=== PATIENT | male | born 1955 | race Caucasian/White ===

== ENCOUNTER 2017-07-26 06:33 | Day surgery (SDC) | payer BC, SELFPAY ==
--- NOTE | 2017-07-26 | COLBX_PTH ---
PATIENT: DARIELA JUNG LOC: EN U#:[id number] AGE/SX: 62/M ROOM: RE07/26/[address]: Dr. Aaron Mckeon MD : 1955 BED: DIS: 07/26/2017 SPEC #: [id number] RECD: 07/26/17 13:18 STATUS: DK LUANA #: [id number] VIKA: 07/26/17 00:[address]: Aaron Mckoen DEPT: SURGICAL PATHOLOGY RECD BY: Sukhwinder Chadwick ENTERED: 07/26/17 13:18 SP TYPE: COLON BX OTHR DR: Dr. Ezequiel Pastor MD Tissues: Rectum, NOS Procedures: Surgery Specimen Level IV HEADER OPERATION: Colonoscopy PRE-OP DIAGNOSIS: Screening TISSUE SUBMITTED: Rectum polyp MICROSCOPIC DIAGNOSIS Rectal polyp, biopsy: Tubular adenoma. AM:damian 07/27/17 COMMENT Case has been reviewed in consultation with Dr. Frost who concurs with the above diagnosis. IDC:SJ MICROSCOPIC DESCRIPTION Slides are reviewed. GROSS DESCRIPTION Received in fixative is one container labeled with the patient's name and designated rectum polyp. The specimen consists of a piece of shah-pink polyp measuring 0.5 x 0.5 x 0.2 cm. The specimen is totally submitted in one cassette. / SJ:damian 07/26/17 TC:5 CPT: 18990
--- NOTE | 2017-07-26 06:33 | DT_ITS ---
This patient was seen during an EMR downtime July 19, 2017 - July 26, 2017. This patient may have a combination of paper and electronic documentation or all paper documentation. All documentation is viewable within the e-chart portion of [facility] for each patient visit.
== END 2017-07-26 09:27 | disposition home or self-care (01) ==
LOC: EN 06:34
PROVIDERS: Family Provider Family Medicine; PCP Family Medicine; Visit Provider Surgery
PROC: 0DJD8ZZ Inspection of Lower Intestinal Tract, Via Natural or Artificial Opening Endoscopic (ICD-10-PCS; CPT 45378; principal; 2017-07-26 07:40)
DX: Z12.11 Encounter for screening for malignant neoplasm of colon (principal); K62.1 Rectal polyp; K57.30 Diverticulosis of large intestine without perforation or abscess without bleeding; I10 Essential (primary) hypertension
CPT/HCPCS: 45385; 88305; 99152; 99153; J7120

== ENCOUNTER → 2022-02-26 | Outpatient (CLI) | payer MEDICARE, SELFPAY ==
--- NOTE | 2022-02-26 10:30 | MRI_ITS ---
STUDY: MR PELVIS WITH AND WITHOUT CONTRAST (PROSTATE) REASON FOR EXAM: Male, 66 years old. Elevated PSA TECHNIQUE: Standardized multiparametric prostate MRI with T1, T2, DWI/ADC sequences were obtained in 3 orthogonal planes, and dynamic contrast enhancement sequences. 15 ml of clariscan contrast material was administered intravenously for the contrast portion of the examination. COMPARISON: None. FINDINGS: The prostate volume measures 44 mm3. The contours of the prostate gland are smooth. There is not mass effect on the bladder base. The transition zone is heterogenous. PI-RADS DWI score 2 - Hypointense within a BPH nodule on ADC. PI-RADS T2W score 2 - A mostly encapsulated nodule OR a homogeneous circumscribed nodule without encapsulation (atypical nodule) or a homogeneous mildly hypointense area between nodules.. Contrast enhancement no early or contemporaneous enhancement; or diffuse multifocal enhancement NOT corresponding to a focal finding on T2W and/or DWI or focal ehancement responding to a lesion demonstrating features of BPH onT2WI (including features of extruded BPH in the PZ). The peripheral zone is homogenous. PI-RADS DWI score 5 - Focal moderately hypointense on ADC and markedly hyperintense on high b-value DWI; >1.5cm on axial or definite extraprostatic extension/invasive behavior. PI-RADS T2W score 5 - Circumscribed, homogenous moderate hypointense focus/mass confined to prostate and > 1.5 cm in greatest dimension or definite extraprostatic invasion/extension. Contrast enhancement (+) Focal, earlier or contemporaneous with enhancement of adjacent normal prostatic tissues, and corresponding to a suspicious finding on T2WI and/or DWI. 1.2 x 2.2 cm T2 hypointense lesion in the lateral left mid peripheral zone on image 15 of series 6 associated with restricted diffusion (image 99 and series 8, image 16 series 801). Additionally, 1.0 x 1.2 cm T2 hypointense lesion in the right posterior peripheral zone on image 16 of series 6 also demonstrates restricted diffusion (image 137 series 8, image 16 series 801). The seminal vesicles demonstrate normal margins and T2 signal pattern. No mass lesion or invasion depicted. The rectoprostatic angles are normal. Urinary bladder is trabeculated. The vascular structures of the are normal. The visualized hollow viscus structures are normal. No bone marrow edema or mass lesion depicted. MRI/Pelvis W/WO Contrast IMPRESSION: 1. PIRADS v2.1 2019 -- 5 - Very high (clinically significant cancer is highly likely). Electronically Signed: Jonah Hawkins (Brooks), at 15:36 EST ,
[2022-02-26 10:50] LABS: CREATININE FINGERSTICK < 0.9 mg/dL (0.70-1.30); EGFR FINGERSTICK > 60.0000 mL/min (>60)
== END | disposition home or self-care (01) ==
PROVIDERS: PCP Family Medicine; Referring Provider Urology; Visit Provider Urology
DX: R97.20 Elevated prostate specific antigen [PSA] (principal)
CPT/HCPCS: 72197; A9581

== ENCOUNTER → 2022-03-02 | Outpatient (CLI) | payer MEDICARE, SELFPAY ==
--- NOTE | 2022-03-02 | IMM_PTH ---
PATIENT: DARIELA JUNG LOC: MAME U#:[id number] AGE/SX: 66/M ROOM: RE03/02/[address]: Dr. Radames Herrera MD : 1955 BED: DIS: 03/02/2022 SPEC #: [id number] RECD: 03/04/22 13:28 STATUS: DK REQ #: [id number] VIKA: 03/02/22 00:[address]: Radames Herrera DEPT: IMMUNOHISTOCHEMISTRY RECD BY: Ivanna Victoria ENTERED: 03/04/22 13:29 SP TYPE: IMMUNO OTHR DR: Dr. Ezequiel Pastor MD Tissues: A - PROSTATE RIGHT B - PROSTATE RIGHT D - PROSTATE LEFT E - PROSTATE LEFT F - PROSTATE LEFT Procedures: 34BE12 (add) P40 (add) 34BE12 (initial) PHYSICIAN & INSTITUTION [place] [id number] SPECIMEN INFORMATION: Tissue Source: A - Right apex, B - Right mid, D - Left apex, E - Left mid, F - Left base Clinical Info: Elevated PSA Specimen Number: [id number] A, B, D-F CPT code: 29013, 59371 x9 METHODOLOGY: Deparaffinized sections of prefer/formalin-fixed tissue or PAP/DQ stained slides are incubated with monoclonal/polyclonal antibodies/oligonucleotide probes. Localization is made via biotin free immunoperoxidase method. Appropriate controls are performed and reacted as expected. Results on target cell population are indicated in the following table: RESULTS: ANTIBODY / CLONE RESULT Block A P40 (BC28) negative 34BE12 (34BE12) negative Block B P40 (BC28) positive 34BE12 (34BE12) positive Block D P40 (BC28) positive 34BE12 (34BE12) positive Block E P40 (BC28) positive 34BE12 (34BE12) positive Block F P40 (BC28) positive 34BE12 (34BE12) positive These tests were developed and their performance characteristics determined by [facility]. They may not have been cleared or approved by the U.S. Food and Drug Administration. The FDA has determined that such clearance or approval is not necessary. The above immunohistochemical/dualISH markers are ordered and reviewed by the Pathologist. INTERPRETATION: A. Right prostate, apex, core biopsy: Adenocarcinoma. B. Right prostate, mid, core biopsy: Focal high-grade prostatic intraepithelial neoplasia (HGPIN). D. Left prostate, apex, core biopsy: Focal high-grade prostatic intraepithelial neoplasia (HGPIN). E. Left prostate, mid, core biopsy: Negative for malignancy. F. Left prostate, base, core biopsy: Focal high-grade prostatic intraepithelial neoplasia (HGPIN). SJ:damian 03/05/2022
--- NOTE | 2022-03-02 13:45 | PROSBIL_PTH ---
PATIENT: DARIELA JUNG LOC: MAME U#:[id number] AGE/SX: 66/M ROOM: RE03/02/[address]: Dr. Radames Herrera MD : 1955 BED: DIS: 03/02/2022 SPEC #: [id number] RECD: 03/02/22 15:39 STATUS: DK RENaty #: [id number] VIKA: 03/02/22 13:[address]: Radames Herrera DEPT: SURGICAL PATHOLOGY RECD BY: Tereza Lofton ENTERED: 03/03/22 10:02 SP TYPE: PROST BX ANDREW DR: Dr. Ezequiel Pastor MD Tissues: A - PROSTATE RIGHT B - PROSTATE RIGHT C - PROSTATE RIGHT D - PROSTATE LEFT E - PROSTATE LEFT F - PROSTATE LEFT Procedures: PROSTATE BX HEADER OPERATION: Prostate biopsy PRE-OP DIAGNOSIS: Elevated PSA TISSUE SUBMITTED: A - Right apex, B - Right mid, C - Right base, D - Left apex, E - Left mid, F - Left base MICROSCOPIC DIAGNOSIS A. Right prostate, apex, core biopsy: Prostatic adenocarcinoma. [place] grade: 3+3=6 Number of cores involved: 1/1 Proportion of tissue involved: ~15% Perineural invasion: Not identified. Greatest tumor length: 0.2 cm See comment. B. Right prostate, mid, core biopsy: Focal high-grade prostatic intraepithelial neoplasia (HGPIN). Chronic inflammation. See comment. C. Right prostate, base, core biopsy: Prostatic adenocarcinoma. Lazarus grade: 3+3=6 Number of cores involved: 1/1 Proportion of tissue involved: ~15-20% Perineural invasion: Suspected Greatest tumor length: 0.3 cm D. Left prostate, apex, core biopsy: Focal high-grade prostatic intraepithelial neoplasia (HGPIN). See comment. E. Left prostate, mid, core biopsy: Prostatic tissue, negative for malignancy. See comment. F. Left prostate, base, core biopsy: Focal high-grade prostatic intraepithelial neoplasia (HGPIN). See comment. SJ:damian 03/04/2022 COMMENT A, B, D-F - Immunohistochemistry ([id number]) supports the above diagnosis. Case has been reviewed in consultation with Dr. Samuel who concurs with the above diagnosis. IDC:AM MICROSCOPIC DESCRIPTION Slides are reviewed. GROSS DESCRIPTION A - Received is one container designated prostate, right apex. The specimen consists of one elongated fragment of light shah-white soft tissue measuring 1.5 cm in length and 0.1 cm in diameter. The specimen is totally submitted in one cassette. B - Received is one container designated prostate, right mid. The specimen consists of one elongated fragment of light shah-white soft tissue measuring 1.5 cm in length and 0.1 cm in diameter. The specimen is totally submitted in one cassette. C - Received is one container designated prostate, right base. The specimen consists of one elongated fragment of light shah-white soft tissue measuring 1.5 cm in length and 0.1 cm in diameter. The specimen is totally submitted in one cassette. D - Received is one container designated prostate, left apex. The specimen consists of one elongated fragment of light shah-white soft tissue measuring 1.5 cm in length and 0.1 cm in diameter. The specimen is totally submitted in one cassette. E - Received is one container designated prostate, left mid. The specimen consists of one elongated fragment of light shah-white soft tissue measuring 1.5 cm in length and 0.1 cm in diameter. The specimen is totally submitted in one cassette. F - Received is one container designated prostate, left base. The specimen consists of one elongated fragment of light shah-white soft tissue measuring 1.5 cm in length and 0.1 cm in diameter. The specimen is totally submitted in one cassette. / DAT:damian 03/03/2022 TC:0 CPT: G0146
== END | disposition home or self-care (01) ==
LOC: LABSPEC 17:56
PROVIDERS: PCP Family Medicine; Visit Provider Urology
DX: R97.20 Elevated prostate specific antigen [PSA] (principal)
CPT/HCPCS: 88305; 88341; 88342; G0416

== ENCOUNTER 2022-04-08 12:08 | Observation (INO) | payer MEDICARE, SELFPAY ==
--- NOTE | 2022-03-30 11:35 | EKG12_ITS ---
Test Reason : PRE-OP Blood Pressure : / mmHG Vent. Rate : 070 BPM Atrial Rate : 070 BPM P-R Int : 192 ms QRS Dur : 082 ms QT Int : 366 ms P-R-T Axes : 084 066 057 degrees QTc Int : 395 ms Normal sinus rhythm Normal ECG Confirmed by DANIEL MEYER, AMARJIT ([id number]), editorial writer MELQUIADES CHACON ([id number]) on 03/31/2022 7:40:21 AM Referred By: RENZO Confirmed By:AMARJIT SANCHEZ MD
[2022-03-30 12:49] LABS: Hematocrit 43.8 % (40-54); Hemoglobin 14.7 g/dL (13.0-16.5); Mean Corp Hgb Conc 33.6 g/dL (32-36); Mean Corpuscular Hgb 33.4 pg (27.0-32.0); Mean Corpuscular Volume 99.5 fL (80-94); Mean Platelet Vol. 10.1 fl (6.2-12.0); Platelet Count 266 K/mm3 (150-450); RBC Distribution Width SD 44.4 fl (35.1-43.9)
[2022-03-30 13:01] LABS: Partial Thromboplast Time 30.3 Seconds (24.1-36.2)
[2022-03-30 13:10] LABS: AST(SGOT) 31 U/L (15-37); Alanine Aminotransfer ALT/SGPT 34 U/L (16-61); Albumin, Serum 4.2 g/dL (3.2-5.0); Alkaline Phosphatase 72 U/L (45-117); Anion Gap 4 (5-15); BUN 13 mg/dL (7-18); BUN/Creat Ratio 17.2 RATIO (10-20); Bilirubin, Direct 0.18 mg/dL (0.00-0.30); Calcium,Total 9.7 mg/dL (8.5-10.1); Chloride 106 mmol/L (98-107); Creatinine, Serum 0.75 mg/dL (0.70-1.30); EST Glomerular Filtration Rate 110 mL/min (>60); Est Glom Filt Rate - Afr Amer 133 mL/min (>60); Globulin 4.3 g/dL (2.2-4.2); Glucose 106 mg/dL (74-106); Potassium 4.8 mmol/L (3.5-5.1); Protein, Total 8.5 g/dL (6.4-8.2); Sodium Level 138 mmol/L (136-145)
[2022-04-08] VITALS (14 sets, daily range): BP systolic 140–187; BP diastolic 75–91; PULSE 60–94; RESP 14–18; TEMP 36.3–36.9; O2SAT 95–100; BMI 21.2
--- NOTE | 2022-04-08 | PROST_PTH ---
PATIENT: DARIELA JUNG LOC: MS3 U#:[id number] AGE/SX: 66/M ROOM: [facility] RE04/08/[address]: Dr. Radames Herrera MD : 1955 BED: 1 DIS: 04/09/2022 SPEC #: [id number] RECD: 04/08/22 16:51 STATUS: DK CRAFT #: [id number] VIKA: 04/08/22 00:[address]: Radames Herrera DEPT: SURGICAL PATHOLOGY RECD BY: Sukhwinder Chadwick ENTERED: 04/09/22 09:20 SP TYPE: PROSTATE OTHR DR: Dr. Ezequiel Pastor MD Tissues: A - Lymph node of pelvis, NOS B - Lymph node of pelvis, NOS C - Prostate, NOS Procedures: Surgery Specimen Level V Surgery Specimen Level HEADER OPERATION: Laparoscopic robotic radical prostatectomy PRE-OP DIAGNOSIS: Cancer prostate TISSUE SUBMITTED: A ? Left pelvic lymph node, B ? Right pelvic lymph node, C - Prostate MICROSCOPIC DIAGNOSIS A. Left pelvic lymph node, biopsy: One out of one lymph node negative for carcinoma. B. Right pelvic lymph node, biopsy: One out of one lymph node negative for carcinoma. C. Prostate, radical prostatectomy: Adenocarcinoma. See cancer synoptic report below. AM:damian 04/13/2022 COMMENT PROSTATE CANCER (RADICAL) SUMMARY: Procedure: Radical Prostatectomy Prostate Size: 4.0 x 3.5 x 3.0 cm Histologic Type: Adenocarcinoma Histologic Grade: 7 (3+4) Percent of Pattern 4: 15% Percent of Pattern 5: 0% Intraductal Carcinoma: Not identified Tumor Quantitation: 3.0 x 1.8 x 1.2 cm (from glass slides) Extraprostatic Extension: Not identified Urinary Bladder Neck Invasion: Not identified Seminal Vesicle Invasion: Not identified Lymphvascular Invasion: Not identified Perineural Invasion: Focally present Margins: Free of carcinoma Regional Lymph Nodes: Number of lymph nodes involved by carcinoma: 0 Total number of lymph nodes examined: 2 (see specimens A & B) Treatment Effect: Unknown Additional Pathologic Findings: Focal high-grade prostatic intraepithelial neoplasia and chronic inflammation. PATHOLOGIC STAGE: T2 N0 Mx The above summary is in compliance with [employer] [place] [employer] (CAP) Cancer Protocols Checklist and [place] Joint Committee on Cancer (AJCC), Staging Manual, 8th Ed. Reference is made to the patient's previous right prostate base and right prostate apex, needle core biopsies ([id number]) in which prostatic adenocarcinoma (Lazarus score 6=3+3) was identified. Case has been reviewed in consultation with Dr. Forst who concurs with the above diagnosis. IDC:SJ MICROSCOPIC DESCRIPTION Slides are reviewed. GROSS DESCRIPTION A - Received in fixative is one container labeled with the patient's name and designated left pelvic lymph node. The specimen consists of a piece of yellow adipose tissue measuring 2.0 x 2.0 x 0.4 cm. The specimen is bisected and submitted entirely in one cassette. / :rg 04/09/2022 B - Received in fixative is one container labeled with the patient's name and designated right pelvic lymph node. The specimen consists of a piece of yellow adipose tissue measuring 2.0 x 2.0 x 0.5 cm. The specimen is sectioned and submitted entirely in one cassette. / SJ:rg 04/09/2022 C - Received in fixative is one container labeled with the patient's name and designated prostate. The specimen consists of a radical prostatectomy specimen consisting of prostate and bilateral seminal vesicles and vas deferens. The specimen weighs 45 gm. The prostate measures 4.0 cm transversely, 3.0 cm anterior-posteriorly and 3.5 cm craniocaudally. The right seminal vesicle measures 2.5 x 1.5 x 0.5 cm and right vas deferens measures 3.0 cm in length and 0.5 cm in diameter. The left seminal vesicle measures 3.0 x 1.5 x 0.8 cm and the left vas deferens measures 2.5 cm in length and 0.5 cm in diameter. The prostate is inked as follows: anterior surface - yellow, posterior surface - black, right lateral surface - blue, left lateral surface - green. The bilateral seminal vesicles and vas deferens are inked as follows: posterior surface bilateral seminal vesicle and vas deferens - black, anterior surface right seminal vesicle and vas deferens - blue and anterior left seminal vesicle and vas deferens - green. Toxicology Teacher sections are submitted in 19 cassettes as follows: 1 - right seminal vesicle and vas deferens, 2 - left seminal vesicle and vas deferens, 3 - apical (urethral) margin prostate, enface, 4 & 5 - bladder base and basal portion of prostate margin, enface, 6-9 - apical portion prostate, 10-13 - middle portion prostate, 1419 - basal portion prostate. Sections are submitted after additional fixation. / SJ:rg 04/09/2022 TC:0 CPT: 06704 x2, 22000
[2022-04-08] MEDS: Lactated Ringers 1,000 ML 15 ML IV ×4 (11:27→15:30)
[2022-04-08] MEDS: Cefazolin 2 GM in 0.9% Normal Saline 100 ML IV (12:00)
--- NOTE | 2022-04-08 12:10 | PCM.HP.STD ---
[facility] - General General Date of Service: 04/08/22 Chief Complaint: prostate cancer HPI Narrative DARIELA JUNG, is a 66 M who presents for treatment of prostate cancer he is going to have to undergo radical prostatectomy by bilateral lymph node dissection and suture suspension of the urethra. [facility] Medical History Alcohol use Anxiety Cancer High cholesterol Loss of hearing Prostate disease Smoker Wears glasses Home Medications rosuvastatin 10 mg tablet (Crestor) 10 mg PO QHS 03/25/22 [History Last Taken Unknown] Allergy/AdvReac Type Severity Reaction Status Date / Time No Known Allergies Allergy Verified 03/25/22 14:03 Surgical History History of carpal tunnel surgery of right wrist Hx of colonoscopy Social History Smoking Status: Current every day smoker tobacco type: cigarettes Vital Signs Vital Signs Vital Signs: 04/08/22 11:17 04/08/22 11:17 Temperature 97.9 F Temperature Source Temporal Pulse Rate 80 Respiratory Rate 16 Respiratory Pattern Normal Blood Pressure 143/90 H Blood Pressure Mean 107 Blood Pressure Source Monitor Blood Pressure Position Sitting Blood Pressure Location Left Arm Pulse Ox 100 Oxygen Delivery Method Room Air Weight Weight: 72.9 kg Body Mass Index (BMI) 21.2 Physical Exam Const alert and oriented x3 General Appearance: cooperative HEENT normocephalic, head/scalp atraumatic, EAC's normal and TM's normal bilaterally Eyes PERRL and EOMs intact bilaterally Pupil: sluggish Neck no lymphadenopathy, supple and no JVD General: trachea midline Lymph Lymphatic: no lymphadenopathy noted, lymphedema and lymphadenopathy Resp normal respiratory effort, normal air movement and clear to auscultation bilaterally Cardio regular rate, regular rhythm and peripheral pulses 2+ throughout GI soft to palpation, non-tender and non-distended Extremity normal capillary refill and no clubbing, cyanosis or edema General Extremity: no tenderness to palpation of joints or extremities Skin no rashes or lesions noted General Skin Exam: turgor normal Lesions: no lesions Rashes: no rashes Neuro CN's II-XII intact bilaterally Speech: speech normal Motor Exam: strength 5/5 throughout; Negative for general weakness Psych thought process normal, cooperative and affect normal Appearance: appropriate Results Lab / Micro Data Result Diagrams: 03/30/22 12:05 03/30/22 12:05 Assessment & Plan Assessment/Plan (1) Malignant neoplasm of prostate: PLAN: Plan to proceed with radical prostatectomy bilateral lymph node dissection and suture suspension of the urethra
--- NOTE | 2022-04-08 12:11 | DCINST_ITS ---
Discharge Instructions Diet Discharge Diet: No restrictions, Light diet - advance as tolerated and Soft diet Activity Discharge Activity: Return to Normal Activity Dressing / Incision Catheter: [place] to leg bag and [place] to large bag Drain: [place] Follow Up Care Please Follow Up With: Radames Herrera MD When: 2 weeks, home with [place] Test Results: Test results from this visit will be discussed in further detail at your follow- up appointment, if applicable. Discharge Plan Admission Primary Reason for Your Visit: Prostatectomy Attending Provider: Radames Herrera Primary Care Provider: Ezequiel Pastor Instructions Patient Instructions: Prostate Cancer Radical ... Discharge Orders/Prescriptions Prescriptions: Continued rosuvastatin [Crestor] 10 mg Tablet 10 mg PO QHS Discontinued aspirin [Aspir-81] 81 mg Tablet,Delayed Release (Dr/Ec) 81 mg PO DAILY Referrals / Follow Up: Ezequiel Pastor MD [Primary Care Provider] - Radames Herrera MD [Med Staff - Active Staff] - Disposition Disposition (needs filled in before D/C Order can be placed): Home, Self Care
[2022-04-08] MEDS: Bupivacaine 0.5% PF 10 ML VIAL (14:39)
--- NOTE | 2022-04-08 14:50 | PCM.OPRPT ---
Report of Operation Date of Procedure: 04/08/22 Pre-Operative Diagnosis: Prostate cancer Post-Operative Diagnosis: The same Surgery/Procedure Performed:: Laparoscopic robotic assisted radical prostatectomy with bilateral lymph node dissection Description of Surgical Findings:: Patient was taken back to the operating room he was identified, time out procedure was performed and he was placed supine on the table he underwent general anesthesia with intubation. The abdomen was shaved prepped and draped in usual sterile fashion as well as the penis and testicles. A 17 Citizen [place] catheter was placed into the bladder with clear return of urine. I then made an incision in the umbilicus and dissected down to the fascia advance a Veress needle into the peritoneal cavity and insufflated the peritoneal cavity with CO2 gas. I then placed a 12 mm trocar above the umbilicus. I then visualized the placement of the rest of the trochars, I placed a right arm robotic trocar, and air seal trocar, a suction port 5 mm trocar. And on the left side I placed 2 robotic arms. Once all the trochars were in placed the patient was put in steep Trendelenburg. And the robot was docked the arms were docked and then I placed the 0 degree camera through the robotic arm and also used a 30 degree camera during certain parts of the case. I used scissors in the right arm, prograsp in the third arm, and a bipolar in the second arm. Initial dissection was to free the sigmoid colon off the lateral wall this was done by meticulously dissecting off the peritoneum and the sigmoid colon off the left lateral wall. This then allowed the prograsp to retract the sigmoid colon out of the pelvis. I then went below the bladder and identified the vas deferens incised the peritoneum over the vas deferens and traced the vas deferens below the bladder to the prostate and identified the right and left vasa deferens. Below behind the vas deferens then the seminal vesicles were identified. I then dissected the seminal vesicle free using pinpoint electrocautery and then we identified the other seminal vesicle and then dissected this using pinpoint electrocautery I then elevated the vas deferens and several vesicles off the prostate and was able to sweep the Denonvilliers' fascia off the prostate posteriorly all the way up to the apex of the prostate. Working laterally I made sure I went as lateral as possible to sweep the Denonilliers' fascia off the posterior aspect of the prostate and worked my way back, I then transected the vas deferens and the left and right side the seminal vesicles were then dissected free. And then I pulled out of the pelvis. At this point the bladder was dropped creating the space of Retzius with the bladder on traction with the fourth arm. Using electrocautery I dissected in the anterior peritoneal fascia and then created the space of Retzius dissecting towards the prostate. The pelvic lymph node dissection was then performed both side. The right pelvic lymph nodes the nodes that were taken on the right side extended from the right iliac artery lateral pelvic sidewall up to the junction of the artery and the lymph nodes and down to the obturator nerve and then also below the basin operator nerve all the lymph nodes were removed during to remove those lymph nodes using a vessel searler and electrocautery to control small blood vessels and also the control lymphatic. I then went to the left side and again did an extensive lymph node dissection starting of the left iliac artery extending the left iliac vein on the lateral sidewall down to the obturator nerve and the left side beyond the basin operator nerve down further behind it cleaning out all the lymphatic tissue all this tissue was sent off as a specimen we a vessel sealer and electrocautery during the dissection. At the end we cleaned out all the lymphatic tissue on the right pelvic wall and all the lymphatic tissue in the left pelvic wall. The prostate was then cleaned of the fat over the prostate and the fourth arm was used to retract the bladder and place traction. I then identified the endopelvic fascia that was overlying the prostate on the right side I incised endopelvic fascia and swept the levator muscles off the prostate all the way to the apex on the right side, I then worked my way anterior to the prostate then transected to the puboprostatic ligament and the underlying dorsal vein complex was not injured. I then went to the other side and identified the endopelvic fascia in the left side incised in a fashion the left side and swept the levator muscles off the prostate on the left side all the way up to the apex the puboprostatic ligament on the left side was then dissected and transected I then freed up the fascia overlying the dorsal vein complex. I then used the prograsp to encircled the dorsal vein complex with the prograsp and then switched over to the right and left needle entry level truck driver and suture ligated the dorsal vein complex above the prograsp. The prograsp was then placed back in the bladder and put back on traction I then identified the junction between the bladder and the prostate and dissected down between the bladder and the prostate untilI came across the catheter we then dissected posteriorly to the bladder and prostate to free the prostate and the bladder off each other and the muscles between the bladder and the prostate was then cauterized to free up the bladder. I then went on top of the prostate and identified the endopelvic fascia on top of the prostate this was incised all the way to the apex and then we swept the endopelvic fascia off the prostate laterally and then identified the plane between endopelvic fascia and the prosthetic pseudocapsule and swept the fascia laterally until reaching the course of the neurovascular bundles and then released the neurovascular bundles off the prostate laterally all the way back in a retrograde fashion back to the junction of the pedicles then the prostate was placed on traction with the fourth arm pulling the prostate laterally identified the pedicle to the prostate between the seminal vesicles and the and the neurovascular bundle. Using Vessel sealler the pedicles of the prostate were controlled, After the pedicle was taken the I then dissected underneath the prostate sweeping the neurovascular bundle off the prostate we able to follow the nice smooth plane between the neurovascular bundle and the pseudocapsule all the way to the apex once this was identified we swept this up all the way up to the apex and there was perfect nerve sparing on the right side. Then went to the left side the prostate identified the endopelvic fascia over the left side of the prostate I incised the endopelvic fascia all the way to the apex and then swept this off laterally I then released the neurovascular bundles on the left side of the prostate sweeping him off the prostate laterally I then elevated the prostate up up with the prostate and traction identified the pedicle to the prostate on the left side and then the pedicles taken with vessel sealer, I then was able to dissected the neurovascular bundle off the left posterior aspect the prostate this was a perfect dissection all the way up on the left side following the pseudocapsule all the way up the left side until we reached the apex of the prostate. After the both the neurovascular bundles has been swept off the posterior to the prostate I then went above and transected the dorsal vein complex there was minimal to no bleeding but then dissected down to the urethra and circumfencial dissected around the urethra I then switched the right and left arm with the needle drivers and I suture-ligated the dorsal vein complex again just to ensure that there was no bleeding from the dorsal vein complex. I then transected through the urethra with scissors and the prostate was then freed and released off the prostate bed and put an Endo Catch bag. At this point the bladder neck was reconstructed and then an anastomosis was performed between the prostate and the bladder with a 3 oh V-Loc stitch in a running fashion starting from the bladder neck at the 6 o'clock position working to the 12 o'clock position with continuous stitches to complete a perfect anastomosis between the bladder and the prostate. I then placed a new catheter into the bladder, an 19 Citizen [place] tip catheter flushed the bladder and there was no leakage from the anastomosis I put 10 cc in the balloon and pulled it up pulled back gently. I then ensured that there was no bleeding from the dorsal vein complex no bleeding from the neurovascular bundles FloSeal was placed as necessary once hemostasis was ensured and adequate then I placed the bladder back in position in the pelvis the prostate was exchanged to the camera port I closed the air seal port with a 10 12 Kehinde Alvarenga stitch. And the extracted the prostate through the umbilicus. The robot was undocked all the ports were removed under direct visualization then closed the extraction site with 0 Vicryl with a CT1 needle once the extraction site was closed. I then closed all the incision with subcuticular stitches with 4-0 Monocryl and then bandages were placed on the incisions catheter was flushed to make sure it was draining well there was no clots and it was crystal clear patient's anesthetic was reversed he was extubated and taken back to the PACU in stable condition all the needles and sponges and instruments were accounted for. Blood loss was minimal and the drain was a 19 Citizen [place] Powers catheter. No other surgical drain was left. I was present during the entire case.
[2022-04-08] MEDS: Ketorolac 15 MG/ML Vial IV ×2 (15:45→21:12)
[2022-04-08] MEDS: 0.9% Normal Saline 1,000 ML 125 ML IV (17:52)
[2022-04-08] MEDS: Docusate Sodium 100 MG Capsule 200 MG PO (21:14)
[2022-04-08] MEDS: Atorvastatin Calcium 20 MG Tablet PO (21:14)
[2022-04-09 01:42] VITALS: BP 130/68; PULSE 70; RESP 16; TEMP 36.7; O2SAT 100
[2022-04-09] MEDS: 0.9% Normal Saline 1,000 ML 125 ML IV (01:52)
[2022-04-09 04:12] VITALS: BP 116/67; PULSE 79; RESP 12; TEMP 36.8; O2SAT 100
[2022-04-09] MEDS: Ketorolac 15 MG/ML Vial IV ×2 (04:21→10:20)
--- NOTE | 2022-04-09 07:32 | PCM.PN.GU ---
Subjective Subjective Status post robotic radical prostatectomy yesterday did well overnight no issues or problems vital signs are stable no plan or complaints, tolerating regular diet last night, he can advance diet today as tolerated, ambulate the hallways, he can go home today with a Powers catheter to a leg bag and a large bag. Objective Data Objective Data Vital Signs: Vital Signs Temp Pulse Resp BP Pulse Ox O2 Del Method O2 Flow Rate 98.3 F 79 12 116/67 100 Room Air 4 04/09/22 04:12 04/09/22 04:12 04/09/22 04:12 04/09/22 04:12 04/09/22 04:12 04/09/22 04:12 04/08/22 15:15 Oxygen Flow Rate (L/min) 4 Oxygen Delivery Method Room Air Weight: 72.9 kg Body Mass Index (BMI) 21.2 Intake & Output: Intake and Output for Last 24 Hours 04/07/22 04/08/22 04/09/22 23:59 23:59 23:59 Intake Total 3146 / 3446 1500 / 1500 Output Total 640 / 890 750 / 750 Balance 2506 / 2556 750 / 750 Lab / Micro Data Result Diagrams: 03/30/22 12:05 03/30/22 12:05
--- NOTE | 2022-04-09 07:33 | PCM.DC ---
Discharge Instructions Diet Discharge Diet: No restrictions, Light diet - advance as tolerated and Soft diet Dressing / Incision Catheter: [place] to leg bag and [place] to large bag Drain: [place] Additional Dressing/Incision Instructions:: [place] to leg bag, [place] care teaching Follow Up Care Please Follow Up With: Radames Herrera MD When: two weeks Test Results: Test results from this visit will be discussed in further detail at your follow-up appointment, if applicable. Discharge Plan Admission Admit Date/Time: 04/08/22 12:08 Primary Reason for Your Visit: Prostatectomy Attending Provider: Radames Herrera Primary Care Provider: Ezequiel Pastor Instructions Patient Instructions: Prostate Cancer Radical ... Discharge Orders/Prescriptions Prescriptions: New docusate sodium [Colace] 100 mg capsule 100 mg PO BID Qty: 20 0RF ciprofloxacin HCl [Cipro] 500 mg tablet 500 mg PO BID Qty: 20 0RF oxycodone-acetaminophen [Endocet] 5-325 mg tablet 1 tab PO Q6H PRN (Reason: pain) 7 Days Qty: 14 0RF Continued rosuvastatin [Crestor] 10 mg Tablet 10 mg PO QHS Discontinued aspirin [Aspir-81] 81 mg Tablet,Delayed Release (Dr/Ec) 81 mg PO DAILY Referrals / Follow Up: Ezequiel Pastor MD [Primary Care Provider] - Radames Herrera MD [Med Staff - Active Staff] - Disposition Discharge Orders: Discharge Patient (Routine); Ordered 04/09/22 Ordered By: Dr. Radames Herrera
[2022-04-09 08:03] VITALS: BP 136/67; PULSE 68; RESP 17; TEMP 37.1; O2SAT 98
[2022-04-09 08:09] VITALS: O2SAT 98
[2022-04-09] MEDS: Docusate Sodium 100 MG Capsule 200 MG PO (10:21)
[2022-04-09] MEDS: 0.9% Saline Lock 10 ML Syringe IV (10:21)
== END 2022-04-09 11:11 | disposition home or self-care (01) ==
LOC: SDC 16:15 → MS3 16:15
PROVIDERS: Anesthesiology; Admitting Provider Urology; PCP Family Medicine; Referring Provider Urology; Visit Provider Urology
PROC: 0VT04ZZ Resection of Prostate, Percutaneous Endoscopic Approach (ICD-10-PCS; CPT 55866; principal; 2022-04-08 12:55)
DX: C61 Malignant neoplasm of prostate (principal); F17.210 Nicotine dependence, cigarettes, uncomplicated; E78.00 Pure hypercholesterolemia, unspecified; Z79.82 Long term (current) use of aspirin; Z79.899 Other long term (current) drug therapy; N40.1 Benign prostatic hyperplasia with lower urinary tract symptoms; R35.1 Nocturia; R35.0 Frequency of micturition; Z01.818 Encounter for other preprocedural examination; H91.90 Unspecified hearing loss, unspecified ear; Z78.9 Other specified health status; Z87.09 Personal history of other diseases of the respiratory system
CPT/HCPCS: 55866; 00865; 36415; 80048; 80076; 85027; 85610; 85730; 86850; 86900; 86901; 88307; 88309; 93005; 94668; 96361; 96374; 96376; 99221; 99252; J7030; J7120; A4216; G0378; G0463; J2405

== ENCOUNTER → 2022-06-08 | Outpatient (CLI) | payer MEDICARE, SELFPAY ==
[2022-06-08 10:59] LABS: PSA,Total- Diagnostic < 0.01 ng/mL (0.0-4.0)
== END | disposition home or self-care (01) ==
LOC: LAB 09:20
PROVIDERS: PCP Family Medicine; Referring Provider Urology; Visit Provider Urology
DX: C61 Malignant neoplasm of prostate (principal)
CPT/HCPCS: 36415; 84153

== ENCOUNTER → 2022-10-06 | Outpatient (CLI) | payer MEDICARE, SELFPAY ==
[2022-10-06 09:49] LABS: PSA,Total- Diagnostic < 0.01 ng/mL (0.0-4.0)
== END | disposition home or self-care (01) ==
PROVIDERS: PCP Family Medicine; Referring Provider Urology; Visit Provider Urology
DX: C61 Malignant neoplasm of prostate (principal)
CPT/HCPCS: 36415; 84153

== ENCOUNTER → 2023-04-27 | Outpatient (CLI) | payer MEDICARE, SELFPAY ==
[2023-04-27 10:44] LABS: PSA,Total- Diagnostic < 0.01 ng/mL (0.0-4.0)
== END | disposition home or self-care (01) ==
LOC: LAB 09:38
PROVIDERS: Referring Provider Urology; Visit Provider Urology
DX: C61 Malignant neoplasm of prostate (principal)
CPT/HCPCS: 36415; 84153

== ENCOUNTER → 2024-10-31 | Outpatient (CLI) | payer MEDICARE, SELFPAY ==
[2024-10-31 13:51] LABS: PSA,Total- Diagnostic < 0.02 ng/mL (0.00-4.00)
== END | disposition home or self-care (01) ==
LOC: LAB 11:44
PROVIDERS: Referring Provider Urology; Visit Provider Urology
DX: C61 Malignant neoplasm of prostate (principal)
CPT/HCPCS: 36415; 84153